=== PATIENT | male | born 1995 | race Caucasian/White ===

== ENCOUNTER 2024-01-01 00:40 | Emergency (ER) | payer OTHER ==
[~2024-01-01] VITALS: Ht 182.9 cm; Wt 91.0 kg
[2024-01-01 00:41] VITALS: BP 123/64; TEMP 98.1
[2024-01-01] MEDS ORDERED: Ketorolac 30 MG/ML VIAL IM ONE (01:15)
[2024-01-01] MEDS ORDERED: Home Cyclobenzaprine 10 MG #2 TABS/PACK PO ONE (01:15)
[2024-01-01] MEDS ORDERED: FLEXERIL 1010 MG/TAB PO (01:34)
[2024-01-01 01:47] VITALS: PULSE 83
== END 2024-01-01 01:47 | disposition home or self-care (01) ==
LOC: COL.ER 00:40
DX: S90.121A Contusion of right lesser toe(s) without damage to nail, initial encounter (principal); M54.2 Cervicalgia; X50.0XXA Overexertion from strenuous movement or load, initial encounter; Y93.67 Activity, basketball
CPT/HCPCS: J1885; J2360